=== PATIENT | male | born 1995 | race Caucasian/White ===

== ENCOUNTER 2017-01-13 09:03 | Emergency (ER) | payer OTHER ==
[2017-01-13 09:16] VITALS: BP 131/74; TEMP 97.9
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
[2017-01-13] MEDS ORDERED: TDAP ADULT 0.5 ML INJ (BOOSTRIX) IM ONE (10:04)
[2017-01-13 10:30] VITALS: PULSE 80; RESP 14; O2SAT 99
== END 2017-01-13 10:29 | disposition home or self-care (01) ==
LOC: CED 09:03
DX: S62.317A Displaced fracture of base of fifth metacarpal bone, left hand, initial encounter for closed fracture (principal); Z23 Encounter for immunization; V13.4XXA Pedal cycle driver injured in collision with car, pick-up truck or van in traffic accident, initial encounter; Y99.8 Other external cause status; Y93.55 Activity, bike riding
CPT/HCPCS: 73130-PO; A4565